=== PATIENT | male | born 1965 | race Two or more races ===

== ENCOUNTER 2021-09-22 14:14 | Emergency (ER) | payer MEDICARE, OTHER ==
[~2021-09-22] VITALS: Ht 175.3 cm; Wt 67.1 kg
--- NOTE | 2021-09-22 15:02 | NUR ---
URINE SAMPLE COLLECTED.
[2021-09-22] MEDS ORDERED: RISP0.2515 PO (15:24)
--- NOTE | 2021-09-22 15:48 | NUR ---
PT SEEN BY ART. PER PT, HE WANTS TO GO BACK TO HIS PRISON. LAQUITA RUIZ, MADE AWARE.
--- NOTE | 2021-09-22 16:41 | NUR ---
MEDICALLY AND PSYCH CLEARED. DISCHARGE FROM ED IN STABLE CONDITION.
[2021-09-22 16:44] VITALS: BP 132/81
== END 2021-09-22 16:44 | disposition home or self-care (01) ==
LOC: ER 15:35
DX: R45.851 Suicidal ideations (principal); R44.0 Auditory hallucinations; F15.10 Other stimulant abuse, uncomplicated; Z60.2 Problems related to living alone; Z79.899 Other long term (current) drug therapy

== ENCOUNTER 2021-11-03 14:00 | Emergency (ER) | payer MEDICARE, OTHER ==
[~2021-11-03] VITALS: Ht 175.3 cm; Wt 68.0 kg
[~2021-11-03 14:00] MED LIST: RISP0.2515 PO
--- NOTE | 2021-11-03 14:58 | NUR ---
COVID TEST COLLECTED AND SENT
--- NOTE | 2021-11-03 15:00 | NUR ---
URINE COLLECTED AND SENT
[2021-11-03 15:31] LABS: BASOPHILS % (AUTO) 0.4 % (0.0-2.0); EOSINOPHILS % (AUTO) 1.2 % (0.0-6.0); HEMATOCRIT 40 % (39-51); HEMOGLOBIN 13.4 g/dL (13.5-17.5); LYMPHOCYTES # (AUTO) 1.1 K/uL (0.8-4.8); LYMPHOCYTES % (AUTO) 19.2 % (20.0-44.0); MEAN CORPUSCULAR HGB CONC 33 g/dl (31.0-36.0); MEAN CORPUSCULAR VOLUME 95 fL (80-96); MONOCYTES # (AUTO) 0.5 K/uL (0.1-1.30); MONOCYTES % (AUTO) 7.8 % (2.0-12.0); NEUTROPHILS # (AUTO) 4.2 K/uL (1.8-8.9); NEUTROPHILS % (AUTO) 71.4 % (43.0-81.0); PLATELET COUNT (AUTO) 292 K/uL (150-450); RED BLOOD CELL COUNT(AUTO) 4.24 MIL/uL (4.5-6.0); WHITE BLOOD COUNT (AUTO) 5.9 K/uL (4.3-11.0)
[2021-11-03 15:50] LABS: BILIRUBIN,URINE NEGATIVE (NEGATIVE); COLOR,URINE YELLOW (YELLOW); LEUKOCYTE ESTERASE ,URINE NEGATIVE (NEGATIVE); NITRITE, URINE NEGATIVE (NEGATIVE); PH,URINE 6.5 (5.0-8.0); PROTEIN,URINE NEGATIVE (NEGATIVE); UGLUCOSE NEGATIVE (NEGATIVE); UROBILINOGEN,URINE 0.2 EU/dL (0.2)
[2021-11-03 15:55] LABS: CALCIUM, SERUM 8.4 mg/dL (8.5-10.1); CARBON DIOXIDE 30 mmol/L (21-32); CHLORIDE 103 mmol/L (98-107); CREATININE 0.9 mg/dL (0.6-1.3); GLUCOSE 107 mg/dL (74-106); POTASSIUM 4.2 mmol/L (3.5-5.1); SODIUM SERUM 137 mmol/L (136-145); UREA NITROGEN, BLOOD 18 mg/dL (7-18)
[2021-11-03 16:01] LABS: ALANINE AMINOTRANSFERASE 91 U/L (12-78); ALBUMIN 3.1 g/dL (3.4-5.0); ALCOHOL, BLOOD < 3 mg/dL (0-0); ALKALINE PHOSPHATASE 75 U/L (46-116); ASPARTATE AMINOTRANSFERASE 56 U/L (15-37); BILIRUBIN,DIRECT 0.1 mg/dL (0.0-0.2); BILIRUBIN,TOTAL 0.4 mg/dL (0.2-1.0); TOTAL PROTEIN, SERUM 7.4 g/dL (6.4-8.2)
[2021-11-03 16:06] LABS: BACTERIA,URINE RARE /HPF (None Seen); SQUAMOUS EPITHELIAL CELL,UR 0-2 /HPF (None Seen); WBC,URINE 0-2 /HPF (0-3)
[2021-11-03 16:06] LABS: ACETAMINOPHEN < 2 ug/ml (10-30)
[2021-11-03] MEDS ORDERED: OLANZAPINE 5 MG TABLET ONE (18:00)
[2021-11-03] MEDS ORDERED: OLANZAPINE 5 MG TABLET PO ONE (18:00)
--- NOTE | 2021-11-03 19:07 | NUR ---
FAXED PAPERWORK TO [facility] 18:44
--- NOTE | 2021-11-03 23:31 | NUR ---
PT GOING TO [facility] UNDER [address]. NUMBER FOR REPORT IS [phone].
--- NOTE | 2021-11-04 00:17 | NUR ---
REPORT GIVEN TO DANYELLE RODRIGUEZ FROM [facility] FOR [facility]
--- NOTE | 2021-11-04 01:34 | NUR ---
[facility] AT BED SIDE TO [employer] THE PT
[2021-11-04 02:10] VITALS: BP 118/75
--- NOTE | 2021-11-04 02:10 | NUR ---
Lillie left in stable condition going to [facility].
== END 2021-11-04 02:10 | disposition home or self-care (01) ==
LOC: ER 14:30
DX: F20.9 Schizophrenia, unspecified (principal); Z20.822 Contact with and (suspected) exposure to COVID-19
CPT/HCPCS: 36415; 80048-TC; 80076-TC; 81001; 85025-TC; C9803; G0480

== ENCOUNTER 2024-01-07 14:22 | Emergency (ER) | payer BC, MEDICAID ==
[~2024-01-07 14:22] MED LIST changes: -RISP0.2515 PO; +RISP1TAB7 PO
== END 2024-01-07 16:27 | disposition left against medical advice (07) ==
LOC: ER 14:57
DX: Z00.00 Encounter for general adult medical examination without abnormal findings (principal); Z53.21 Procedure and treatment not carried out due to patient leaving prior to being seen by health care provider

== ENCOUNTER 2024-03-20 06:10 | Emergency (ER) | payer BC, MEDICAID ==
[~2024-03-20] VITALS: Ht 175.3 cm; Wt 68.0 kg
[2024-03-20 07:05] LABS: BASOPHILS % (AUTO) 0.5 % (0.0-2.0); EOSINOPHILS # (AUTO) 0.1 K/uL (0.0-0.7); EOSINOPHILS % (AUTO) 1.7 % (0.0-6.0); HEMATOCRIT 35 % (39-51); HEMOGLOBIN 12.4 g/dL (13.5-17.5); LYMPHOCYTES # (AUTO) 1.2 K/uL (0.8-4.8); LYMPHOCYTES % (AUTO) 25.7 % (20.0-44.0); MEAN CORPUSCULAR HEMOGLOBIN 33 PG (26.0-33.0); MEAN CORPUSCULAR HGB CONC 35 g/dl (31.0-36.0); MEAN CORPUSCULAR VOLUME 94 fL (80-96); MONOCYTES # (AUTO) 0.4 K/uL (0.1-1.30); MONOCYTES % (AUTO) 7.9 % (2.0-12.0); NEUTROPHILS # (AUTO) 2.9 K/uL (1.8-8.9); NEUTROPHILS % (AUTO) 64.2 % (43.0-81.0); PLATELET COUNT (AUTO) 301 K/uL (150-450); RED BLOOD CELL COUNT(AUTO) 3.74 MIL/uL (4.5-6.0); RED CELL DISTRIBUTION WIDTH 13.7 % (11.5-15.0); WHITE BLOOD COUNT (AUTO) 4.5 K/uL (4.3-11.0)
[2024-03-20 07:10] VITALS: BP 153/97; TEMP 98.1; O2SAT 98
[2024-03-20 07:11] LABS: CALCIUM, SERUM 8.3 mg/dL (8.5-10.1); CARBON DIOXIDE 29 mmol/L (21-32); CHLORIDE 102 mmol/L (98-107); CREATININE 0.9 mg/dL (0.6-1.3); GLUCOSE 113 mg/dL (74-106); POTASSIUM 3.5 mmol/L (3.5-5.1); SODIUM SERUM 136 mmol/L (136-145); UREA NITROGEN, BLOOD 20 mg/dL (7-18)
[2024-03-20 07:24] LABS: ALANINE AMINOTRANSFERASE 33 U/L (12-78); ALBUMIN 3.1 g/dL (3.4-5.0); ALCOHOL, BLOOD < 3 mg/dL (0-10); ALKALINE PHOSPHATASE 90 U/L (46-116); ASPARTATE AMINOTRANSFERASE 17 U/L (15-37); BILIRUBIN,DIRECT 0.1 mg/dL (0.0-0.2); BILIRUBIN,TOTAL 0.6 mg/dL (0.2-1.0); SALICYLATE 2.8 mg/dL (2.8-20.0); TOTAL PROTEIN, SERUM 6.6 g/dL (6.4-8.2)
[2024-03-20 07:28] LABS: ACETAMINOPHEN <10 ug/ml (10-30)
[2024-03-20] MEDS: CEFAZOLIN 1 GM in IV D5W 50 ML IV ONE (08:44)
[2024-03-20 09:35] LABS: BARBITURATE, URINE NEGATIVE (NEGATIVE); BENZODIAZEPINE, URINE NEGATIVE (NEGATIVE); CANNABINOID, URINE NEGATIVE (NEGATIVE); COCCAINE, URINE NEGATIVE (NEGATIVE); OPIATE, URINE NEGATIVE (NEGATIVE); PHENCYCLIDINE SCREEN,URINE NEGATIVE (NEGATIVE)
[2024-03-20 09:37] LABS: APPEARANCE,URINE CLEAR (CLEAR); BILIRUBIN,URINE NEGATIVE (NEGATIVE); BLOOD, URINE NEGATIVE Ery/uL (NEGATIVE); COLOR,URINE YELLOW (YELLOW); KETONES,URINE NEGATIVE (NEGATIVE); LEUKOCYTE ESTERASE ,URINE NEGATIVE (NEGATIVE); NITRITE, URINE NEGATIVE (NEGATIVE); PROTEIN,URINE NEGATIVE (NEGATIVE); UGLUCOSE NEGATIVE (NEGATIVE); UROBILINOGEN,URINE 0.2 EU/dL (0.2)
[2024-03-20 09:54] LABS: AMPHETAMINE, URINE POSITIVE (NEGATIVE)
== END 2024-03-20 09:28 | disposition left against medical advice (07) ==
LOC: ER 06:10
DX: S82.201A Unspecified fracture of shaft of right tibia, initial encounter for closed fracture (principal); S82.831A Other fracture of upper and lower end of right fibula, initial encounter for closed fracture; L03.115 Cellulitis of right lower limb; F29 Unspecified psychosis not due to a substance or known physiological condition; X58.XXXA Exposure to other specified factors, initial encounter; Y93.9 Activity, unspecified; Y92.9 Unspecified place or not applicable; Y99.9 Unspecified external cause status; F20.9 Schizophrenia, unspecified; Z59.02 Unsheltered homelessness; Z79.899 Other long term (current) drug therapy; Z20.822 Contact with and (suspected) exposure to COVID-19
CPT/HCPCS: 29505; 99284; 96365; 73610; 73560; 73590; 85025; 80048; 80076; 81003; 36415; 87426; 80143; 80320; 80307; J0690; J7060; G0480